=== PATIENT | male | born 1980 | race Caucasian/White ===

== ENCOUNTER 2017-06-22 07:23 | Inpatient (IN) | payer BC ==
[2017-06-22 09:32] VITALS: BMI 41.7
[2017-06-22] MEDS ORDERED: NS 100 ML IV 100 ML IV ONE (10:17)
[2017-06-22] MEDS: LR 1000 ML IV 1,000 ML IV ONE ×2 (10:35→10:39)
[2017-06-22] MEDS: ANCEF VIAL 1 GM ONE ×2 (10:50→11:08)
[2017-06-22] MEDS: FENTANYL INJ 250 mcg ONE ×2 (11:04→11:09)
[2017-06-22] MEDS: MARCAINE 0.25% INJ ONE ×2 (11:08→11:23)
[2017-06-22] MEDS: XYLOCAINE 1% and EPINEPHRINE 1:100,000 ONE ×2 (11:08→11:23)
[2017-06-22] MEDS ORDERED: NS IRRIGATION 1000 ML 1,000 ML IR ONE (11:25)
[2017-06-22] MEDS ORDERED: LR 1000 ML IV 1,000 ML IV ONE (11:55)
[2017-06-22] MEDS ORDERED: DILAUDID INJ IVP PRN ×2 (12:23→12:33)
[2017-06-22] MEDS ORDERED: ZOFRAN INJ 4 MG VIAL IVP PRN ×2 (12:26→12:33)
[2017-06-22] MEDS ORDERED: BENADRYL INJ 50 MG VIAL IVP PRN (12:33)
[2017-06-22] MEDS ORDERED: REGLAN INJ 10 MG VIAL IVP PRN (12:33)
[2017-06-22] MEDS ORDERED: PHENERGAN INJ 25 MG IVP PRN (12:33)
--- NOTE | 2017-06-22 13:13 | OR.GENERIC ---
Post-Op Note Generic - Post-Op Note Operative Report: Date of Operation: June 22, 2017 Pre-Operative Diagnosis: Incarcerated umbilical / incisional hernia. Post-Operative Diagnosis: Incarcerated umbilical / incisional hernia. Procedure: Open incisional hernia repair with underlay mesh (Bard Ventralex, 6.4 cm). Surgeon: Shai Denise MD. Shoes Hand Sewer: Eduardo Bucio CRNA. Specimens: Hernia sac. Estimated blood loss: Minimal. Complications: None. Summary: The patient is a 37 yo M who presented with an incarcerated umbilical / incisional hernia. The patient is status post laparoscopic cholecystectomy in the past. The patient was offered incisional hernia repair. The risk and benefits of the procedure including difficulty with anesthesia, bleeding, infection, injury to intraabdominal contents requiring further surgery, recurrence, DVT, as well as PE were discussed with the patient. The patient understood these risks and requested the procedure. On June 22, 2017, the patient was brought to the operative theatre. A time out was performed verifying the patient and procedure. The patient received Ancef for pre-operative antibiosis. After satisfactory induction of general endotracheal anesthesia, the abdomen was prepped with Chloraprep and draped in the usual sterile fashion. The skin was incised sharply in a curvilinear fashion inferior to the umbilicus at the previous incisional scar. The incision was slowly carried through the dermis sharply until the hernia sac was encountered. The hernia sac was dissected free from the umbilical stalk using sharp dissection. The hernia sac was elevated and opened sharply. Incarcerated omentum was encountered. This was slowly reduced into the peritoneum. The hernia sac was then cleared from the fascia circumferentially over the surgeons finger. The fascial defect measured approximately 1-1/2 cm. A Ventralex 2.5 circular mesh was placed in an underlay fashion using #2 Ethibond U-stitches. The fascia was re-approximated transversely using interrupted #2 Ethibond sutures. The wound was irrigated. Bleeding was controlled using electrocautery. The umbilical stalk was sutured to the fascia using 2-0 Vicryl sutures. The dermis was re-approximated using inverted, interrupted 3-0 Vicryl sutures. The skin edges were re-approximated using a running 4-0 Monocryl stitch. Benzoin and Steri-strips were placed. Sterile dressings were placed. The patient was awakened and taken to the recovery room in stable condition. There were no complications. All counts were correct.
[2017-06-22] MEDS ORDERED: LTA KIT LIDOCAINE 4% ONE (16:07)
[2017-06-22] MEDS ORDERED: VERSED ONE (16:07)
[2017-06-22] MEDS ORDERED: ROBINUL ONE (16:07)
[2017-06-22] MEDS ORDERED: NORCURON INJ 10 MG VIAL ONE (16:07)
[2017-06-22] MEDS ORDERED: NEOSTIGMINE INJ ONE (16:07)
[2017-06-22] MEDS ORDERED: EPHEDRINE SULFATE INJ ONE (16:07)
[2017-06-22] MEDS ORDERED: QUELICIN (OR ANECTINE) ONE (16:07)
[2017-06-22] MEDS ORDERED: SUPRANE IN ONE (16:07)
[2017-06-22] MEDS ORDERED: HumuLIN R SUBCUT PRN (19:26)
[2017-06-22] MEDS ORDERED: QUINAPRIL HCL PO SCH (19:30)
[2017-06-22] MEDS ORDERED: SNACK - Diabetic Appropriate PO SCH (20:00)
[2017-06-22] MEDS ORDERED: GLUCOPHAGE ONE (20:27)
[2017-06-22] MEDS: GLUCOPHAGE PO SCH (20:44)
[2017-06-22] MEDS: PERCOCET TAB 5/325 MG PO PRN (20:45)
[2017-06-23] MEDS: PERCOCET TAB 5/325 MG PO PRN ×3 (05:05→13:31)
[2017-06-23 06:14] LABS: BASOPHILS % (AUTO) 0.5 % (0.2-1.0); EOSINOPHILS # (AUTO) 0.2 x10^3/uL (0.0-0.2); EOSINOPHILS % (AUTO) 1.9 % (0.9-2.9); LYMPHOCYTES # (AUTO) 1.1 X10^3/uL (1.3-2.9); LYMPHOCYTES % (AUTO) 12.5 % (21.0-51.0); MEAN CORPUSCULAR HEMOGLOBIN 28.7 pg (27.0-34.0); MEAN CORPUSCULAR HGB CONC 34.1 g/dL (33.0-35.0); MEAN CORPUSCULAR VOLUME 84.2 fL (80.0-100.0); MEAN PLATELET VOLUME 8.3 fL (7.4-11.0); MONOCYTES # (AUTO) 0.6 x10^3/uL (0.3-0.8); NEUTROPHILS % (AUTO) 78.1 % (42.0-75.0); PLATELET COUNT 137 X10^3/uL (150.0-450.0); RED BLOOD COUNT 4.87 X10^6/uL (4.7-6.0); RED CELL DISTRIBUTION WIDTH 13.8 % (11.6-16.5); WHITE BLOOD COUNT 8.9 X10^3/uL (3.6-10.0)
[2017-06-23 06:52] LABS: ALANINE AMINOTRANSFERASE 54 Units/L (12-78); ALBUMIN 3.2 g/dL (3.4-5.0); ALKALINE PHOSPHATASE 22 Units/L (46-116); ASPARTATE AMINO TRANSFERASE 23 Units/L (15-37); BLOOD UREA NITROGEN 12 mg/dL (7-18); CALCIUM 8.4 mg/dL (8.5-10.1); CARBON DIOXIDE 29.6 mmol/L (21-32); CHLORIDE 104 mmol/L (98-107); COR NA(FOR HYPERGLY) 140 mmol/L (136-145); CREATININE 0.91 mg/dL (0.70-1.30); SODIUM 139 mmol/L (136-145); TOTAL PROTEIN 6.5 g/dL (6.4-8.2); eGFR BLACK RACES > 60 (>60); eGFR NON BLACK RACES > 60 (>60)
[2017-06-23] MEDS ORDERED: GLUCOPHAGE ONE (07:32)
[2017-06-23] MEDS: GLUCOPHAGE PO SCH (08:06)
[2017-06-23] MEDS ORDERED: ACCUPRIL PO SCH (09:00)
[2017-06-23 12:08] VITALS: BP 139/72
--- NOTE | 2017-06-23 14:54 | PCM.PROG ---
Progress Note - Progress Note for Day of Date: 06/23/17 - Subjective Subjective: c/o soreness at hernia repair site. Toleraing diet. Pain controlled with PO meds. (-) N/V. (+) OOB. - Past Medical Family Social History Allergies: Allergies Penicillins Allergy (Verified 06/22/17 08:51) - Vital Signs and I&O's Vital Signs: Temperature 98.0 F Pulse Rate [Left Radial] 85 Pulse Rate 91 Respiratory Rate 22 Blood Pressure [Right Arm] 139/72 Blood Pressure 117/58 O2 Sat by Pulse Oximetry 92 Intake and Output: Intake & Output 06/21/17 06/22/17 06/23/17 06/24/17 11:59 11:59 11:59 11:59 Intake Total 1720 Output Total 1010 600 Balance -1010 1120 - Physical Exam Oriented: Normal Eyes: Normal Respiratory: Normal Cardiovascular: Normal Auscultation: Bowel Sounds: Normal Palpation: Normal, Other (Dressing C/D/I.) Tenderness: Periumbilical (Appropriate. ) Skin: Red (Secondary to UHR.), Bruising (Secondary to UHR / retraction.) Mood Description: Calm Speech Pattern: Clear, Appropriate - Laboratory and Diagnostics Result Diagrams: 06/23/17 05:45 06/23/17 05:45 Labs: Laboratory WBC 8.9 X10^3/uL (3.6-10.0) 06/23/17 05:45 RBC 4.87 X10^6/uL (4.7-6.0) 06/23/17 05:45 Hgb 14.0 g/dL (13.5-18.0) 06/23/17 05:45 Hct 41.0 % (42.0-54.0) L 06/23/17 05:45 MCV 84.2 fL (80.0-100.0) 06/23/17 05:45 MCH 28.7 pg (27.0-34.0) 06/23/17 05:45 MCHC 34.1 g/dL (33.0-35.0) 06/23/17 05:45 RDW 13.8 % (11.6-16.5) 06/23/17 05:45 Plt Count 137 X10^3/uL (150.0-450.0) L 06/23/17 05:45 MPV 8.3 fL (7.4-11.0) 06/23/17 05:45 Neut % 78.1 % (42.0-75.0) H 06/23/17 05:45 Lymph % 12.5 % (21.0-51.0) L 06/23/17 05:45 Richardson % 7.0 % (0.0-13.0) 06/23/17 05:45 Eos % 1.9 % (0.9-2.9) 06/23/17 05:45 Baso % 0.5 % (0.2-1.0) 06/23/17 05:45 Neut # 7.0 x10^3/uL (2.2-4.8) H 06/23/17 05:45 Lymph # 1.1 X10^3/uL (1.3-2.9) L 06/23/17 05:45 Richardson # 0.6 x10^3/uL (0.3-0.8) 06/23/17 05:45 Eos # 0.2 x10^3/uL (0.0-0.2) 06/23/17 05:45 Baso # 0.0 X10^3/uL (0.0-0.1) 06/23/17 05:45 Absolute Nucleated RBC 0.1 /100WBC 06/23/17 05:45 Sodium 139 mmol/L (136-145) 06/23/17 05:45 Corrected Sodium 140 mmol/L (136-145) 06/23/17 05:45 Potassium 4.8 mmol/L (3.5-5.1) 06/23/17 05:45 Chloride 104 mmol/L (98-107) 06/23/17 05:45 Carbon Dioxide 29.6 mmol/L (21-32) 06/23/17 05:45 BUN 12 mg/dL (7-18) 06/23/17 05:45 Creatinine 0.91 mg/dL (0.70-1.30) 06/23/17 05:45 Est GFR (MDRD) Af Amer > 60 (>60) 06/23/17 05:45 Est GFR (MDRD) Non-Af > 60 (>60) 06/23/17 05:45 Glucose 146 mg/dL (65-99) H 06/23/17 05:45 Calcium 8.4 mg/dL (8.5-10.1) L 06/23/17 05:45 Corrected Calcium 9.0 mg/dL (8.5-10.1) 06/23/17 05:45 Total Bilirubin 1.80 mg/dL (0.2-1.0) H 06/23/17 05:45 AST 23 Units/L (15-37) 06/23/17 05:45 ALT 54 Units/L (12-78) 06/23/17 05:45 Alkaline Phosphatase 22 Units/L (46-116) L 06/23/17 05:45 Total Protein 6.5 g/dL (6.4-8.2) 06/23/17 05:45 Albumin 3.2 g/dL (3.4-5.0) L 06/23/17 05:45 Globulin 3.3 g/dL (2.5-4.5) 06/23/17 05:45 Albumin/Globulin Ratio 1.0 Ratio (1.1-2.1) L 06/23/17 05:45 Tissue Pathology To follow 06/22/17 12:01 - Plan (1) Umbilical hernia Status: Acute Narrative Support Text: Stable post-op. AFVSS. Abd. Approp. TTP. Routine post-op care. Plan: Discharge home. Limit lifting to 10#. f/u 1-2 weeks.
== END 2017-06-23 16:00 | disposition home or self-care (01) | DRG 395 ==
LOC: ICU 07:23
PROVIDERS: ADMIT Internal Medicine; ATTEND Internal Medicine
PROC: 0WUF0JZ Supplement Abdominal Wall with Synthetic Substitute, Open Approach (ICD-10-PCS; principal; 2017-06-22 10:00)
DX: K42.0 Umbilical hernia with obstruction, without gangrene (principal); R10.84 Generalized abdominal pain; I10 Essential (primary) hypertension; E11.65 Type 2 diabetes mellitus with hyperglycemia; E66.8 Other obesity; G47.33 Obstructive sleep apnea (adult) (pediatric)
CPT/HCPCS: 36415; 80053; 85025; 93005; 93010; 99221; A4216; A4222; S0020; J0330; J0690; J1170; J2001; J2250; J2710; J3010; J3490; J7120